=== PATIENT | female | born 1990 | race African-American/Black ===

== ENCOUNTER 2021-09-18 18:06 | Emergency (ER) | payer OTHER ==
[~2021-09-18] VITALS: Ht 157.5 cm; Wt 52.2 kg
== END 2021-09-18 22:33 | disposition home or self-care (01) ==
LOC: ER 18:06
DX: B34.8 Other viral infections of unspecified site (principal); Z20.828 Contact with and (suspected) exposure to other viral communicable diseases

== ENCOUNTER 2022-06-16 09:31 | Outpatient (CLI) | payer OTHER | END 2022-06-16 10:31 | disposition home or self-care (01) | LOC: PRENATAL 09:31 | PROVIDERS: ATTEND Obstetrics & Gynecology Maternal & Fetal Medicine | DX: O35.9XX0 Maternal care for (suspected) fetal abnormality and damage, unspecified, not applicable or unspecified (principal); O35.3XX0 Maternal care for (suspected) damage to fetus from viral disease in mother, not applicable or unspecified; O28.1 Abnormal biochemical finding on antenatal screening of mother; Z3A.20 20 weeks gestation of pregnancy ==

== ENCOUNTER 2022-08-16 14:40 | Emergency (ER) | payer OTHER ==
[~2022-08-16] VITALS: Ht 157.5 cm; Wt 59.9 kg
== END 2022-08-16 20:30 | disposition home or self-care (01) ==
LOC: ER 14:40
DX: K21.9 Gastro-esophageal reflux disease without esophagitis (principal); R53.81 Other malaise; Z3A.29 29 weeks gestation of pregnancy

== ENCOUNTER 2022-09-08 09:00 | Outpatient (CLI) | payer OTHER | END 2022-09-08 10:20 | disposition home or self-care (01) | LOC: PRENATAL 09:00 | PROVIDERS: ATTEND Obstetrics & Gynecology Maternal & Fetal Medicine | DX: O26.849 Uterine size-date discrepancy, unspecified trimester (principal); O35.9XX0 Maternal care for (suspected) fetal abnormality and damage, unspecified, not applicable or unspecified; O36.8199 Decreased fetal movements, unspecified trimester, other fetus; O28.1 Abnormal biochemical finding on antenatal screening of mother ==

== ENCOUNTER 2022-10-18 16:10 | Outpatient (CLI) | payer OTHER ==
[~2022-10-18] VITALS: Ht 160 cm; Wt 67.6 kg
[2022-10-18] MEDS ORDERED: OBSTETRIX (16:30)
[2022-10-18] MEDS ORDERED: PRENATABS RX T1 EACH PO (16:49)
== END 2022-10-19 10:40 | disposition home or self-care (01) ==
LOC: OBS/DEL 16:10
PROVIDERS: ATTEND Obstetrics & Gynecology
DX: O47.1 False labor at or after 37 completed weeks of gestation (principal); Z3A.38 38 weeks gestation of pregnancy; Z20.822 Contact with and (suspected) exposure to COVID-19

== ENCOUNTER 2022-10-24 05:54 | Inpatient (IN) | payer OTHER ==
[~2022-10-24] VITALS: Ht 157.5 cm; Wt 65.8 kg
[~2022-10-24 05:54] MED LIST: OBSTETRIX; PRENATABS RX T1 EACH PO
== END 2022-10-27 14:47 | disposition home or self-care (01) | DRG 807 ==
LOC: LDR 05:54 → OB/GYN 14:12
PROVIDERS: ADMIT Obstetrics & Gynecology; ATTEND Obstetrics & Gynecology
PROC: 4A1HXCZ Monitoring of Products of Conception, Cardiac Rate, External Approach (ICD-10-PCS; 2022-10-24)
PROC: 10E0XZZ Delivery of Products of Conception, External Approach (ICD-10-PCS; principal; 2022-10-25)
PROC: 0KQM0ZZ Repair Perineum Muscle, Open Approach (ICD-10-PCS; 2022-10-25)
PROC: 3E033VJ Introduction of Other Hormone into Peripheral Vein, Percutaneous Approach (ICD-10-PCS; 2022-10-25)
DX: O70.1 Second degree perineal laceration during delivery (principal); Z37.0 Single live birth; Z3A.39 39 weeks gestation of pregnancy; Z20.822 Contact with and (suspected) exposure to COVID-19